=== PATIENT | female | born 1980 | race African-American/Black ===

== ENCOUNTER 2017-06-01 12:31 | Emergency (ER) | payer SELFPAY ==
[~2017-06-01] VITALS: Ht 172.7 cm; Wt 113.0 kg
[2017-06-01] MEDS ORDERED: KETOROLAC 60MG/2ML VIAL IM ONE (15:45)
[2017-06-01 17:23] VITALS: BP 135/87
== END 2017-06-01 17:24 | disposition home or self-care (01) ==
LOC: ER 15:38
DX: L73.2 Hidradenitis suppurativa (principal); F17.210 Nicotine dependence, cigarettes, uncomplicated; R03.0 Elevated blood-pressure reading, without diagnosis of hypertension
CPT/HCPCS: 96372; 99283; J1885; Z7610

== ENCOUNTER 2018-12-23 07:40 | Emergency (ER) | payer SELFPAY ==
[~2018-12-23] VITALS: Ht 172.7 cm; Wt 113.0 kg
[2018-12-23 08:00] VITALS: BP 148/101
== END 2018-12-23 08:30 | disposition home or self-care (01) ==
LOC: ER 07:40
DX: H61.21 Impacted cerumen, right ear (principal); F17.210 Nicotine dependence, cigarettes, uncomplicated
CPT/HCPCS: 99283

== ENCOUNTER 2019-06-20 10:43 | Emergency (ER) | payer BC, OTHER ==
[~2019-06-20] VITALS: Ht 172.7 cm; Wt 100.0 kg
[2019-06-20 10:49] VITALS: BP 153/90
== END 2019-06-20 14:07 | disposition left against medical advice (07) ==
LOC: ER 10:43
DX: S63.255A Unspecified dislocation of left ring finger, initial encounter (principal); X58.XXXA Exposure to other specified factors, initial encounter; Y93.89 Activity, other specified; Y92.018 Other place in single-family (private) house as the place of occurrence of the external cause
CPT/HCPCS: 26770; 99284